=== PATIENT | male | born 1935 | race Caucasian/White ===

== ENCOUNTER 2019-08-05 11:47 | Emergency (ER) | payer MEDICARE ==
--- NOTE | 2019-08-05 12:06 | UC ---
Skin Complaint HPI - HPI Summary HPI Summary: 84 yo male presents with ?abscess under left axilla. He tells me that over the last 2 days has noticed some stinging under his left arm. Today he went to have his pacemaker checked and was told there is an abscess in his left axilla and to come to to have this drained and placed on anbx. Pt feels well and denies fever, chills, or hx of MRSA. - History of Current Complaint Time Seen by Provider: 08/05/19 12:06 Stated Complaint: SKIN COMPLAINT LEFT ARM Hx Obtained From: Patient Onset/Duration: Sudden Onset Onset Severity: Mild Current Severity: Mild Pain Intensity: 2 Pain Scale Used: 0-10 Numeric - Allergy/Home Medications Allergies/Adverse Reactions: Allergies Allergy/AdvReac Type Severity Reaction Status Date / Time cefuroxime [From Ceftin] Allergy Unknown Verified 08/05/19 12:21 Reaction Details gabapentin Allergy Unknown Verified 08/05/19 12:21 Reaction Details lisinopril Allergy Unknown Verified 08/05/19 12:21 Reaction Details Home Medications: Home Medications Albuterol 2.5MG/3ML (0.083%)* [Ventolin 2.5 MG/3 ML NEB.SHAE*] 2.5 mg INH Q6H PRN 08/05/19 [History Confirmed 08/05/19] Albuterol Sulfate [Proventil Hfa] 2 puff INH Q4H PRN 08/05/19 [History Confirmed 08/05/19] Amiodarone HCl [Amiodarone HCl-] 100 mg PO DAILY 08/05/19 [History Confirmed 02/16] Apixaban* [Eliquis*] 2.5 mg PO DAILY 08/05/19 [History Confirmed 08/05/19] Brimonid/Timolol 0.2/0.5%(NF) [Combigan 0.2/0.5% (NF)] 1 drop BOTH EYES BID 02/16 [History Confirmed 08/05/19] Carvedilol TAB* [Coreg TAB*] 3.125 mg PO BID 08/05/19 [History Confirmed ] Clopidogrel Bisulfate [Plavix] 75 mg PO DAILY 08/05/19 [History Confirmed ] Fluticasone/Vilanterol MDI(NF) [Breo Ellipta MDI (NF)] 1 puff INH DAILY [History Confirmed 08/05/19] Furosemide TAB* [Lasix TAB*] 100 mg PO DAILY 08/05/19 [History Confirmed ] Isosorbide Dinitrate 30 mg PO DAILY 08/05/19 [History Confirmed 08/05/19] Latanoprost 0.005%* [Xalatan 0.005%*] 1 drop BOTH EYES QPM 08/05/19 [History Confirmed 08/05/19] Nitroglycerin 0.4 mg SL ONCE PRN 08/05/19 [History Confirmed 08/05/19] Omeprazole CAP (NF) [Prilosec CAP* 20 MG] 40 mg PO DAILY 08/05/19 [History Confirmed 08/05/19] Pantoprazole TAB * [Protonix TAB*] 40 mg PO DAILY 08/05/19 [History Confirmed ] Pravastatin Sodium [Pravachol] 80 mg PO DAILY 08/05/19 [History Confirmed ] Sacubitril/Valsartan (NF) [Entresto (NF)] 1 tab PO DAILY 08/05/19 [ History Confirmed 08/05/19] Theophylline TAB* [Alexys Dur*] 150 mg PO BID 08/05/19 [History Confirmed 08/05/19 ] Tiotropium CAPSULE (NF) [Spiriva CAPSULE (NF)] 1 puff INH DAILY 08/05/19 [ History Confirmed 08/05/19] busPIRone TAB* [Buspar TAB*] 1 tab PO DAILY 08/05/19 [History Confirmed 08/05/19 ] traZODone TAB* [Desyrel TAB*] 150 mg PO BEDTIME 08/05/19 [History Confirmed 02/16] PMH/Surg Hx/FS Hx/Imm Hx Endocrine History: Dyslipidemia Cardiovascular History: Cardiac Disease, Hypertension, Pacemaker/ICD Respiratory History: COPD GI/ History: Gastroesophageal Reflux Psychological History: Anxiety Review of Systems All Other Systems Reviewed And Are Negative: No Constitutional: Positive: Negative Skin: Positive: Other - ?abscess left axilla Respiratory: Positive: Negative Cardiovascular: Positive: Negative Neurovascular: Positive: Negative Neurological: Positive: Negative Psychological: Positive: Negative Physical Exam - Summary Physical Exam Summary: GENERAL: NAD. WDWN. No pain distress. SKIN: LEFT AXILLA: 1.0cm erythematous pustule that is firmly fluctuant. Mildly TTP. No surrounding erythema, induration, streaking. NECK: Supple. Nontender. No lymphadenopathy. CHEST: No accessory muscle use. Breathing comfortably and in no distress. CV: Pulses intact. Cap refill <2seconds NEURO: Alert. PSYCH: Age appropriate behavior. Triage Information Reviewed: Yes Vital Signs: Vital Signs: Temp Pulse Resp BP Pulse Ox 98.3 F 83 18 98/64 99 08/05/19 12:11 08/05/19 12:11 08/05/19 12:11 08/05/19 12:11 08/05/19 12:11 Vital Signs Reviewed: Yes Course/Dx - Course Course Of Treatment: Suspect inflamed epidermal cyst. Using manual pressure thick yellow material was able to be expressed. Pt tolerated well and copious material was removed. Cyst flattened. Scant bleeding. Hemostasis achieved and area dressed with telfa. Low suspicion for underlying infectious process at this time, but he tells me that his charge out clerk and person that checked his pacemaker today is concerned for infection and recommends antibiotics - therefore will place him on doxycycline given his unknown hx of allergy to cefuroxime and interaction with bactrim and VIDA. - Diagnoses Provider Diagnosis: Epidermal cyst Discharge ED - Sign-Out/Discharge Documenting (check all that apply): Patient Departure All imaging exams completed and their final reports reviewed: No Studies - Discharge Plan Condition: Stable Disposition: HOME Prescriptions: DOXYcycline CAP(*) [DOXYcycline 100MG CAP(*)] 100 mg PO BID #14 cap Patient Education Materials: Epidermal Inclusion Cysts (ED) Referrals: Haja Garcia MD [Primary Care Provider] - Additional Instructions: If you develop a fever, shortness of breath, chest pain, new or worsening symptoms - please call your PCP or go to the ED immediately. Change the dressing daily until well healed (likely 5-7 days) - Billing Disposition and Condition Condition: STABLE Disposition: Home
[2019-08-05 12:19] VITALS: BP 98/64
== END 2019-08-05 12:37 | disposition home or self-care (01) ==
LOC: UCCORT 11:47
DX: L72.0 Epidermal cyst (principal); Z88.8 Allergy status to other drugs, medicaments and biological substances; E78.5 Hyperlipidemia, unspecified; I10 Essential (primary) hypertension; J44.9 Chronic obstructive pulmonary disease, unspecified; K21.9 Gastro-esophageal reflux disease without esophagitis; F41.9 Anxiety disorder, unspecified; Z95.0 Presence of cardiac pacemaker; Z79.899 Other long term (current) drug therapy
CPT/HCPCS: 99202; G0463